=== PATIENT | male | born 1990 | race Caucasian/White ===

== ENCOUNTER 2016-12-19 07:50 | Day surgery (SDC) | payer OTHER ==
--- NOTE | 2016-12-18 17:40 | HP ---
Date/Time of Note Date/Time of Note DATE: 12/18/16 TIME: 17:30 Assessment/Plan VTE Prophylaxis VTE Prophylaxis Intervention: ambulation Lines/Catheters IV [facility] Saline Lock Assessment/Plan Problems: (1) Inguinal hernia Status: Chronic Qualifiers: Obstruction and gangrene presence: without obstruction or gangrene Laterality: unilateral Recurrence: non-recurrent Qualified Code: K40.90 - Non-recurrent unilateral inguinal hernia without obstruction or gangrene Assessment/Plan This is a 26-year-old male. He has a symptomatic right inguinal hernia. He has requested repair. We have discussed both open and laparoscopic repair he has requested an open repair with placement of mesh. He understands the risk of surgery to include but not exclusive to: Bleeding, infection, neuropathy, chronic pain syndrome, recurrence, loss or damage to the testicle, scar, larger operation to include a laparotomy, damage to bowel or bladder, and risk of mesh placement. Patient requests to proceed. HPI/ROS Admit Date/Time Admit Date/Time 12/19/16 Hx of Present Illness This is a 26-year-old male. He presented to the office complaining of a right inguinal hernia. He states that he's had a bulge for approximately 3-4 months. 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 On exam the patient had healthy abdominal wall except for a noticeably moderate size right inguinal hernia. It appeared to be partially incarcerated. His testicles were descended bilaterally without evidence of masses. He had no evidence of a left inguinal hernia. The pathology of the disease process was discussed with the patient. We discussed both open and laparoscopic repair. He requests an open repair with placement of mesh. ROS Patient denies chest pain or shortness of breath. He states that his schizophrenia is controlled with medications. His last hospitalization was 2010. Constitutional: no complaints Eyes: no complaints ENT: no complaints Respiratory: no complaints Cardiovascular: no complaints Genitourinary: no complaints Musculoskeletal: no complaints Skin: no complaints Neurologic: no complaints Psychological: no complaints PMH/Family/Social Past Surgical History Past Surgical Hx: no surgical history Social History Alcohol Use: occasionally (one to two beers per week) Drug Use: cocaine, marijuana Exam/Review of Systems Exam Constitutional: alert, oriented, well developed Psych: nl mood/affect, no complaints Head: atraumatic, normocephalic Eyes: nl conjunctiva, nl sclera ENMT: nl external ears & nose Neck: supple Respiratory: clear to auscultation, normal air movement Cardiovascular: regular rate and rhythm Gastrointestinal: nl liver, spleen, non-tender, other (Healthy abdominal wall. Moderately sized nonreducible incarcerated right inguinal hernia. No left- sided hernia.), soft Genitourinary - Male: nl penis Musculoskeletal: nl extremities to inspection, nl gait and stance Extremities: normal pulses Neurological: RN FAMILY II-XII intact, nl mental status, nl speech, nl strength Skin: nl turgoRIVERA Kirkpatrick M.D. Dec 18, 2016 17:40
[2016-12-19] VITALS (11 sets, daily range): BP systolic 114–120; BP diastolic 61–77; PULSE 71–76; RESP 11–18; Ht 172.7 cm; Wt 83.7 kg
[~2016-12-19] VITALS: Ht 172.7 cm; Wt 83.7 kg
[~2016-12-19 07:50] MED LIST: CEFAZOLIN 2 GM/50 ML (PMX) 50 ML IVPB ONE
[2016-12-19] MEDS ORDERED: ARIP15TA2 PO (08:33)
[2016-12-19 08:44] LABS: ADD SCAN DIFF NO
[2016-12-19 09:00] LABS: BASOPHILS % 0.5 % (0.0-2.0); EOSINOPHILS # 0.5 10^3/ul (0.0-0.5); EOSINOPHILS % 7.5 % (0.0-7.0); HEMATOCRIT 44.9 % (42.0-52.0); HEMOGLOBIN 15.5 g/dl (14.0-18.0); LYMPHOCYTES # 2.1 10^3/ul (0.8-2.9); LYMPHOCYTES % 32.6 % (15.0-51.0); MEAN CORPUSCULAR HEMOGLOBIN 30.1 pg (29.0-33.0); MEAN CORPUSCULAR HGB CONC 34.5 g/dl (32.0-37.0); MEAN CORPUSCULAR VOLUME 87.2 fl (82.0-101.0); MEAN PLATELET VOLUME 9.5 fl (7.4-10.4); MONOCYTE # 0.7 10^3/ul (0.3-0.9); MONOCYTES % 10.3 % (0.0-11.0); NEUTROPHIL # 3.2 10^3/ul (1.6-7.5); NEUTROPHILS % 48.8 % (39.0-77.0); PLATELET COUNT 205 10^3/UL (140-415); RED BLOOD COUNT 5.15 10^6/ul (4.70-6.10); RED CELL DISTRIBUTION WIDTH 12.5 % (11.5-14.5); WHITE BLOOD COUNT 6.5 10^3/ul (4.8-10.8)
[2016-12-19 09:08] LABS: POTASSIUM 3.5 mmol/L (3.5-5.1)
[2016-12-19] MEDS ORDERED: LIDOCAINE 1% (MPF) 30 ML INJ ONE (09:08)
[2016-12-19] MEDS ORDERED: POLYMYXIN/BACITRACIN 1L IRRIG ONE (09:08)
[2016-12-19] MEDS ORDERED: BUPIVACAINE 0.5%/EPI (SDV) 30 ML INJ ONE (09:08)
[2016-12-19 09:16] LABS: CREATININE 0.9 mg/dl (0.61-1.24)
[2016-12-19] MEDS ORDERED: PROPOFOL 20 ML ONE (09:34)
[2016-12-19] MEDS ORDERED: LIDOCAINE 1% (MDV) 20 ML INJ ONE (09:35)
[2016-12-19] MEDS ORDERED: MIDAZOLAM 1 MG/ML 2 ML INJ ONE (09:35)
[2016-12-19] MEDS ORDERED: CEFAZOLIN 1 GM INJ ONE (09:51)
[2016-12-19] MEDS ORDERED: DEXAMETHASONE 4 MG/ML 1 ML INJ ONE (09:54)
[2016-12-19] MEDS ORDERED: ONDANSETRON 4 MG INJ ONE (09:54)
[2016-12-19] MEDS ORDERED: MEPERIDINE 25 MG INJ IV PRN (10:30)
[2016-12-19] MEDS ORDERED: HYDROmorphONE (0.2 MG/ML) 10ML SYG IV PRN ×2 (10:30)
[2016-12-19] MEDS ORDERED: DIPHENHYDRAMINE 50 MG INJ IV PRN (10:30)
--- NOTE | 2016-12-19 11:12 | OPR ---
Date/Time of Note Date/Time of Note DATE: 12/19/16 TIME: 11:02 Operative Report Procedure Date: Dec 19, 2016 Preoperative Diagnosis Right inguinal hernia Postoperative Diagnosis Right direct inguinal hernia, incarcerated Operation Performed The patient had a significant amount of omentum and possibly bowel in this large hernia sac which extended down to his scrotum. It was scarred down. The following nerves were identified, the ileal inguinal nerve, the hypogastric nerve, and the branch of general femoral nerve. Surgeon: RIVERA MARTINEZ M.D. Anesthesia: general Anesthesiologist: YUNIER SEQUEIRA DO Estimated Blood Loss: 10 - 50 ml's Specimens nerve Complications: None Pt Condition Post Procedure: stable Disposition: PACU Indications This is a 26-year-old male who presented to clinic with a very large non- reducible right inguinal hernia. Operative\Procedure Findings The patient was brought into the operating room. The patient was intubated. Preoperatively he had been marked. The area was prepped and draped. A full timeout was performed. Local anesthesia was infused in the area. An incision was made over the right inguinal canal. Dissection continued through Karyna's fascia to the external oblique fascia. The external oblique fascia was considerably tented due to the large hernia. The external oblique fascia was opened, care being taken not to injure the ilioinguinal nerve. At that point the spermatic cord was dissected away from the floor of the inguinal canal using gentle technique. The following nerves were then identified the hypogastric nerve, the ilioinguinal nerve, and the general femoral branch. The ileal inguinal nerve tented in an abnormal way across the entire field and had to be sacrificed to complete the hernia repair. This was done at the level of the internal ring. It was ligated and then tucked into the internal oblique muscle to decrease the risk of neuroma. The hypogastric nerve actually appeared to dive down deep into the muscle and was not lying on top of the external oblique fascia. At that point the hernia sac was dissected free from the cord structures. The testicular artery and vein were identified. The vas deferens was identified. Both to visual technique and palpation. Once the hernia sac was completely dissected free from the cord structures was reduced through the internal ring. The internal ring was quite large and the patient's floor was very weak. Therefore the floor was gently opened. The first half of a Shouldice repair was performed. This was done in the following manner. A running 2-0 PDS suture was used to reapproximate the edge of the ileal inguinal ligament to the transversalis fascia. This was a 2 layer closure. Using a continuous running suture. The new internal ring was checked to ensure there is not strangulate the cord. Care was taken to suture only the transversalis fascial edge and not the internal oblique or extend high up the muscle and risk injuring the unidentified portion of the hypogastric nerve. Once that was completed the repair was checked here to be intact with no tension on the spermatic vessels. At that time a Everardo repair was performed using light weight polypropylene. The mesh was laid in the following fashion that extended over the pubic tubercle by 2 cm. It extended cranially approximately 4 -1/2 cm. In an extended laterally past the internal ring greater than 5 cm. The mesh was cut and wrapped around the internal ring. The mesh was attached to the shelving edge of the ilioinguinal ligament using a running 2-0 PDS. It was attached to the internal oblique fascia using interrupted loosely tied 0 Vicryl sutures. They were tied in a fashion not to be under tension and not strangulate the tissue again attempting to avoid any nerve entrapment. Once that was completed the tails of the mesh were crossed the new internal ring was checked the tails were sutured together with 1 interrupted 0 Vicryl suture. Care was taken not to incorporate the fascia and the suture. The repair was inspected. The wound was irrigated. Hemostasis appeared to be intact. There is no evidence of strangulate the cord. The external oblique fascia was closed with a running 3-0 Vicryl suture. Care was taken not to involve any nerves or cord structure to closure. More local was infused in the area. Karyna's fascia was reapproximated with interrupted 2-0 PDS suture. The skin was closed with a 4-0 Vicryl suture. Skin glue was used for dressing. Sponge and needle count were correct at the end of procedure. The scrotum was inspected and the testicles are in the scrotum and in the procedure. RIVERA MARTINEZ M.D. Dec 19, 2016 11:12
--- NOTE | 2016-12-20 14:55 | RADRPT ---
Vent Rate: 55 bpm RR Interval: 0 msec SC Interval: 144 msec QRS Duration: 88 msec QT Interval: 396 msec QTC Interval: 378 msec P-R-T [place]: 57 - 83 - 74 degrees Sinus bradycardia Otherwise normal ECG No previous tracing available for comparison Electronically Signed By: Ferny Duggan [id number]
== END 2016-12-19 13:30 | disposition home or self-care (01) ==
LOC: SDS 07:50
PROVIDERS: ATTEND Surgery Trauma Surgery
DX: K40.30 Unilateral inguinal hernia, with obstruction, without gangrene, not specified as recurrent (principal); F20.9 Schizophrenia, unspecified
CPT/HCPCS: 49507; 80048; 85025; 93005; J0690; J1100; J2250; J2405; J3010; Z7512; Z7610